=== PATIENT | male | born 1975 | race Caucasian/White ===

== ENCOUNTER → 2020-01-03 14:59 | Outpatient (CLI) | payer OTHER, SELFPAY ==
--- NOTE | ~2020-01-03 | MR_ITS ---
EXAMINATION: MR elbow LT wo con DATE: 01/03/2020 15:53 INDICATION: Left elbow biceps tear. TECHNIQUE: Magnetic resonance imaging (MRI) of the left elbow was performed without intravenous contr ast. Sequences included coronal, axial, and sagittal PD-weighted FS FSE and coronal, axial, and sagit itzel PD-weighted FSE. COMPARISON: None FINDINGS: Osseous/other: Normal alignment. Normal marrow signal with no marrow edema, fracture, osteochondral lesion or abnor mal marrow replacing process. Nonuniform joint space narrowing with partial thickness cartilage loss consistent with mild osteoarthritis at the left elbow. Tendons: Full-thickness avulsion of the biceps brachii tendon from its radial tuberosity insertion. The tendon is retracted 9 cm from the radial tuberosity footplate with undulating lax configuration with surrou nding edema in the anterior aspect of the distal upper arm. Triceps and brachialis tendons are normal . Common flexor tendon wad is normal. The common extensor tendon wad is normal. Ligaments: The medial and lateral collateral ligament complexes are normal. Cubital tunnel: Cubital tunnel is unremarkable with normal signal and caliber of the ulnar nerve. Fluid: Physiologic amount of fluid the elbow joint. IMPRESSION: 1. Complete avulsion from the radial tuberosity and 9 cm proximal retraction of the biceps brachii te ndon. Reviewed, dictated and finalized at location A. IMPRESSION: 1. Complete avulsion from the radial tuberosity and 9 cm proximal retraction of the biceps brachii tendon.
== END ==
PROVIDERS: PCP Family Medicine; Visit Provider Specialist
DX: M25.522 Pain in left elbow (principal)
CPT/HCPCS: 73221

== ENCOUNTER 2021-02-26 17:48 | Emergency (ER) | payer OTHER, SELFPAY ==
[2021-02-26 18:04] VITALS: BP 159/117; PULSE 109; RESP 14; TEMP 36.4; O2SAT 100
[2021-02-26] MEDS: TETANUS,DIPHTHERIA,AC PERTUSSIS ADULT (0.5 ML) BOOSTRIX IM (19:15)
--- NOTE | 2021-02-26 20:22 | ED.GENADULT ---
HPI - General Adult General Chief complaint: Wound/Laceration Stated complaint: cut hand with saw Time Seen by Provider: 02/26/21 18:15 Source: patient Mode of arrival: ambulatory Limitations: no limitations History of Present Illness HPI narrative: Patient presents with chief complaint of disc it would put her injury to the left hand. Patient reports bleeding to the injury. Patient reports a chunk of the skin is missing. Patient denies crush injury or other areas of injury .patient states that he is not up-to-date on his tetanus. Related Data Allergies Allergy/AdvReac Type Severity Reaction Status Date / Time No Known Allergies Allergy Verified 02/26/21 18:18 Review of Systems Review of Systems: CONSTITUTIONAL: Denies fever, chills, or sweats. EYES: Denies visual changes, redness, or discharge. ENT: Denies rhinorrhea, congestion, sore throat, or otalgia. CARDIOVASCULAR: Denies chest pain, palpitations, or edema. RESPIRATORY: Denies cough or dyspnea. GASTROINTESTINAL: Denies abdominal pain, nausea, vomiting, or diarrhea. GENITOURINARY: Denies dysuria or hematuria. SKIN: Reports skin avulsion and laceration denies rash or itching. MUSCULOSKELETAL: Denies back pain, joint pain, or myalgia. NEUROLOGIC: Denies headache, numbness, dizziness, or weakness. PSYCHIATRIC: Denies anxiety or depression. Exam Narrative: GENERAL: Well-appearing, well-nourished, and in no acute distress. HEAD: Normocephalic, atraumatic. EYES: PERRLA and EOMI. NECK: Supple. No adenopathy or masses. CHEST: Clear to auscultation. No respiratory distress. No wheezes rales or rhonchi HEART: Regular rate and rhythm. No murmur heard. Normal peripheral pulses. EXTREMITIES: Normal range of motion. No edema. SKIN: Reports. Like Grid like irregular laceration along the 5th finger side of the left hand. Most well approximated but the lower aspect 1x1 in area the overlying tissue is avulsed and slowly bleeding. warm, dry, no rash. NEURO: No focal deficits. Alert and oriented x3. PSYCH: Normal mood and affect. Course Vital Signs Vital signs: Vital Signs Temperature 97.5 F L 02/26/21 18:04 Pulse Rate 109 H 02/26/21 18:04 Respiratory Rate 14 02/26/21 18:04 Blood Pressure 159/117 H 02/26/21 18:04 Pulse Oximetry 100 02/26/21 18:04 Temperature 97.5 F L 02/26/21 18:04 Pulse Rate 109 H 02/26/21 18:04 Respiratory Rate 14 02/26/21 18:04 Blood Pressure 159/117 H 02/26/21 18:04 Pulse Oximetry 100 02/26/21 18:04 Medical Decision Making MDM Narrative Medical decision making narrative: surgicel applied over area of skin avulsion 1x1 after thoroughly cleaned with wound heavy cleaner and flushed with saline. other areas are not suturable but approximated well. Keflex prescribed as well as follow up and signs of infections discussed. Vital Signs Vital Signs: Vital Signs Temperature 97.5 F L 02/26/21 18:04 Pulse Rate 109 H 02/26/21 18:04 Respiratory Rate 14 02/26/21 18:04 Blood Pressure 159/117 H 02/26/21 18:04 Pulse Oximetry 100 02/26/21 18:04 Temperature 97.5 F L 02/26/21 18:04 Pulse Rate 109 H 02/26/21 18:04 Respiratory Rate 14 02/26/21 18:04 Blood Pressure 159/117 H 02/26/21 18:04 Pulse Oximetry 100 02/26/21 18:04 Discharge Plan Discharge Clinical Impression: Avulsion of skin Injury of hand, left Qualifiers: Encounter type: initial encounter Qualified Code(s): S69.92XA - Unspecified injury of left wrist, hand and finger(s), initial encounter Patient Disposition: Home, Self-Care Condition: Improved Instructions: Antibiotic Form, Skin Avulsion (ED), Skin Adhesive Care (ED) Additional Instructions: Wash hands with antibacterial soap and apply antibacterial ointment. Take Keflex as instructed. Take naproxen as instructed for pain. Allow adhesive to naturally disintegrate. Follow-up with primary care next week for reevaluation of wound, sooner if there are any questions or concerns Return t
[2021-02-26 20:47] VITALS: BP 138/93; PULSE 93; RESP 18; O2SAT 98
== END 2021-02-26 20:49 | disposition home or self-care (01) ==
PROVIDERS: Emergency Provider Emergency Medicine; PCP Family Medicine
DX: S61.412A Laceration without foreign body of left hand, initial encounter (principal); Z23 Encounter for immunization; W27.0XXA Contact with workbench tool, initial encounter
CPT/HCPCS: 90471; 90715; 99283

== ENCOUNTER 2024-02-01 12:03 | Outpatient (CLI) | payer BC, SELFPAY ==
--- NOTE | ~2024-02-01 | XR_ITS ---
EXAMINATION: XR lumbar spine 6V w bending DATE: 02/01/2024 12:42 INDICATION: Low back pain. TECHNIQUE: 7 views of lumbar spine including flexion and extension views were obtained. COMPARISON: None. FINDINGS: There is 8 degrees levocurvature of lumbar spine. There is mild chronic anterior wedging of T11-L2 vertebral bodies. There is mildly decreased disc height at L2-L3, L4-L5, and L5-S1. There is no abnormal motion on flexion or extension. There is multilevel facet joint osteoarthritis, severe bi laterally at L4-L5 and L5-S1. IMPRESSION: 1. Mild lumbar spondylosis. Reviewed, dictated and finalized at location A. IMPRESSION: 1. Mild lumbar spondylosis.
--- NOTE | ~2024-02-01 | XR_ITS ---
AP and lateral views of the pelvis Clinical history: Pain Findings: No acute fracture or dislocation is seen. Osseous alignment is anatomic. Bilateral hip and SI joint spaces are preserved. Soft tissues are unremarkable. Impression: No significant abnormality is seen. Reviewed, dictated and finalized at location . Impression: No significant abnormality is seen.
== END 2024-02-01 12:04 | disposition home or self-care (01) ==
PROVIDERS: PCP Student in an Organized Health Care Education/Training Program; Visit Provider Chiropractor
DX: M43.02 Spondylolysis, cervical region (principal)
CPT/HCPCS: 72114; 72170

== ENCOUNTER 2024-03-30 10:00 | Outpatient (CLI) | payer BC, SELFPAY ==
--- NOTE | ~2024-03-30 | MR_ITS ---
EXAMINATION: MR hip LT wo con DATE: 03/30/2024 11:00 INDICATION: Left hip pain. Labral tear. TECHNIQUE: Magnetic resonance imaging (MRI) of the left hip was performed without intravenous contras t. COMPARISON: Pelvis radiograph 02/01/2024 FINDINGS: Bones/cartilage: Alignment is normal. No fracture. The femoral head/neck morphologies are normal. The hip joints demon strate tiny osteophytes. Small [id number] images of left hip demonstrate shallow partial-thickness cartilage loss. Labrum: The left acetabular labrum is normal. Fluid: There is no hip joint effusion. There is bilateral iliopsoas bursitis, right worse than left. There i s mild bilateral trochanter bursitis. Soft tissues: There is mild right hamstring origin tendinopathy. There is a partial tear of left hamstring origin. The iliopsoas tendons are normal. The gluteus minimus and gluteus medius tendons are normal. IMPRESSION: 1. Mild osteoarthritis of the hips. 2. Bilateral iliopsoas bursitis, right worse than left. 3. Partial tear of left hamstring origin. Reviewed, dictated and finalized at location A. 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
== END 2024-03-30 10:01 | disposition home or self-care (01) ==
LOC: GOSHIMG 10:01
PROVIDERS: PCP Chiropractor; Visit Provider Chiropractor
DX: S73.192A Other sprain of left hip, initial encounter (principal); X58.XXXA Exposure to other specified factors, initial encounter; M16.12 Unilateral primary osteoarthritis, left hip
CPT/HCPCS: 73721

== ENCOUNTER 2025-03-12 13:47 | Outpatient (CLI) | payer BC, SELFPAY ==
--- NOTE | 2025-03-12 | ECG_ITS ---
Test Date: 2025-03-12 14:06:26 Measurements Intervals [place] Rate: 62 P: 22 PA: 180 QRS: -13 QRSD: 101 T: 7 QT: 396 QTc: 404 Interpretive Statements SINUS RHYTHM INCOMPLETE RIGHT BUNDLE BRANCH BLOCK [90+ ms QRS DURATION, TERMINAL R IN V1/V2, 40+ ms S IN I/aVL/V4/V5/V6] NONSPECIFIC T-WAVE ABNORMALITY ABNORMAL ECG No previous ECG available for comparison Electronically Signed On 03-12-2025 16:00:28 BLACK OFF WORKER by Jasiel Lambert M.D.
--- OUTSIDE RECORDS SUMMARY | 2025-03-13 00:17 | XMS_ITS | Clinical Summary ---
Author Organization [facility] Address [address] [place] [address] Phone Care Team Providers Care Inspector Finishing Name Role Phone Provider, None Primary Care Provider Unavailabl e Social History Tobacco Use Types Packs/Day Years Used Date Smoking Tobacco: Never Assessed Sex and Gender Information Value Date Recorded Sex Assigned at Not on file Legal Sex Male 9:24 AM CDT Gender Identity Not on file Sexual Orientation Not on file Plan of Treatment Health Maintenance Due Date Last Done Comments Hepatitis C Virus (HCV) Screening 1974 Hepatitis B Immunization (1 of 3 - 19+ 3-dose series) 1993 Cologuard 2019 Colonoscopy 2019 Colorectal Cancer Screening 2019 Immunochemical Fecal Occult Blood 2019 Pneumococcal Immunization (5 0+ years) (1 of 1 - PCV) 2024 Zoster Immunization (1 of 2) 2024 Influenza Immunization (#1) 2024 SARS-COV-2 Immunization ( season) 2024 05/09/2021, 10/02/2020, 09/11/2020 Respiratory Syncytial Virus (RSV) Immunization (Adult) (1 - 1-dose 75+ series) 2049 TdaP Immunization Completed 02/26/2021 Human Papillomavirus (HPV) Immunization Aged Out No longer eligible b ased on patient's age to complete this topic Meningococcal Immunization (ACWY) Aged Out No longer eligible b ased on patient's age to complete this topic Rotavirus Immunization Aged Out No lo nger eligible based on patient's age to complete this topic Care Teams Inspector Finishing Relationship Specialty Start Date End Date Provider, None [place] PCP - General 10/19/23
--- OUTSIDE RECORDS SUMMARY | 2025-03-13 00:17 | XMS_ITS | Encounter Summary ---
Author Organization [facility] Address [address] [place] [id number] Care Team Providers Care Aerospace Physiological Technician Name Role Phone Soco Beltre MD Primary Care Provider + Encounter Details Date Type Department Care Team (Late st Contact Info) Description 07/09/2024 [employer] Message Enc [facility] Family Medicine - [place] [address] [place] [address] [phone] Soco Beltre MD [address] [place] [address] [phone] BP follow up Social History Tobacco Use Types Packs/Day Years Used Date Smoking Tobacco: Never Passive Smoke Exposure: Past Smokeless Tobacco: Never Alcohol Use Standard Drinks/Week Comments Yes 6.7 (1 standard drink = 0.6 oz p ure alcohol) socially PHQ-2 Answer Date Recorded Patient Health Questionnaire-2 Score 0 06/06/2024 Sex and Gender Information Value Date Recorded Sex Assigned at Male 06/15/2024 11:44 AM BUNDLE CLERK Legal Sex Male 1:06 PM CDT Gender Identity Not on file Sexual Orientation Not on file 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 file Not on file Not on file documented as of this encounter Last Filed Vital Signs Vital Sign Reading Time Taken Comments Blood Pressure 117/84 07/09/2024 1:56 PM CDT jeff e reading Pulse - - Temperature - - Respiratory Rate - - Oxygen Saturation - - Inhaled Oxygen Concentration - - Weight - - Height - - Body Mass Index - - documented in this encounter Plan of Treatment Upcoming Encounters Date Type Department Care Team (Late st Contact Info) Description 12/09/2025 8:10 AM CDT Office Visit [facility] Family Medicine - [place] [address] [place] [address] Soco Beltre MD [address] [place] [address] documented as of this encounter Visit Diagnoses Not on filedocumented in this encounter Care Teams Aerospace Physiological Technician Relationship Specialty Start Date End Date Soco Beltre MD [address] [place] [address] PCP - General FAMILY PRACTICE 11/07/23 documented as of this encounter
--- OUTSIDE RECORDS SUMMARY | 2025-03-13 00:18 | XMS_ITS | Encounter Summary ---
Author Organization [facility] Address [address] [place] [address] Care Team Providers Care An/Syq 13 Nav/C2 Operator Name Role Phone Soco Beltre MD Primary Care Provider + Encounter Details Date Type Department Care Team (Late st Contact Info) Description 06/04/2024 [employer] Message Enc [facility] Family Medicine - [place] [address] [facility] [address] [place] [address] [phone] Soco Beltre MD [address] [place] [address] [phone] Referrals request Social History Tobacco Use Types Packs/Day Years Used Date Smoking Tobacco: Never Smokeless Tobacco: Never Alcohol Use Standard Drinks/Week Comments Yes 6.7 (1 standard drink = 0.6 oz p ure alcohol) socially PHQ-2 Answer Date Recorded Patient Health Questionnaire-2 Score 0 06/06/2024 Sex and Gender Information Value Date Recorded Sex Assigned at Male 06/15/2024 11:44 AM STAGE ELECTRICIAN HELPER Legal Sex Male 1:06 PM CDT Gender Identity Not on file Sexual Orientation Not on file 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 Question Answer Date of Assessment Author Status Little interest or pleasure in doing things Not at all 06/06/2024 8:51 AM STAGE ELECTRICIAN HELPER Margarita Da Silva, KRIS Active Feeling down, depressed, or hopeless Not at all 06/06/2024 8:51 AM STAGE ELECTRICIAN HELPER Margarita Da Silva MA Activ e Patient Health Questionnaire-2 Score 0 06/06/2024 8:51 AM STAGE ELECTRICIAN HELPER Margarita Da Silva MA Active * If you checked off any problems on this questionnaire so far, Question Answer Date of Assessment Author Status How difficult have these problems made it for you to do your work, take care of things at home, or get along with other people? Not difficult at all 06/06/2024 8:51 AM STAGE ELECTRICIAN HELPER Margarita Da Silva MA Active documented as of this encounter Progress Notes * Su Gallegos MA - 06/04/2024 3:54 PM CST Patient scheduled 06/06/24 E ELECTRICIAN HELPER * Soco Beltre MD - 06/04/2024 2:29 PM CST Please schedule patient to discuss in office and determine appropriate orders. E ELECTRICIAN HELPER documented in this encounter Plan of Treatment Upcoming Encounters Date Type Department Care Team (Late st Contact Info) Description 12/09/2025 8:10 AM CDT Office Visit [facility] Family Medicine - [place] [address] [place] [address] [phone] Soco Beltre MD [address] [place], [place] [phone] documented as of this encounter Visit Diagnoses Not on filedocumented in this encounter Care Teams An/Syq 13 Nav/C2 Operator Relationship Specialty Start Date End Date Soco Beltre MD [address] [place], [place] [phone] PCP - General FAMILY PRACTICE 11/07/23 documented as of this encounter
--- OUTSIDE RECORDS SUMMARY | 2025-03-13 00:18 | XMS_ITS | Clinical Summary ---
Author Organization [facility] [address] [facility] Address [address] [place] [address] Care Team Providers Care Classified Advertising Manager Name Role Phone Soco Beltre MD Primary Care Provider Allergies No known active allergies Medications No known medications Active Problems Problem Noted Date Diagnosed Date Strain of lumbar region 08/16/2024 Social History Tobacco Use Types Packs/Day Years Used Date Smoking Tobacco: Former Cigarettes Tobacco Cessation:Counseling Given: Not Answered Sex and Gender Information Value Date Recorded Sex Assigned at Not on file Legal Sex Male 3:45 PM CDT Gender Identity Not on file Sexual Orientation Not on file Last Filed Vital Signs Vital Sign Reading Time Taken Comments Blood Pressure - - Pulse - - Temperature - - Respiratory Rate - - Oxygen Saturation - - Inhaled Oxygen Concentration - - Weight 113.4 kg (250 lb) 08/16/2024 8:19 AM CDT Height 185.4 cm (6' 1) 08/16/2024 8:19 AM CDT Body Mass Index 32.98 08/16/2024 8:19 AM CDT Plan of Treatment Health Maintenance Due Date Last Done Comments Colon Cancer Screening-Colonoscopy 1974 Depression Screening 1974 Hepatitis C Screening 1974 Prostate Cancer Screening-PSA 1974 Hepatitis B Screening 1992 Regular Well Visit/Exam 18-64 1992 Zoster Vaccine (1 of 2) 2024 Covid-19 Vaccine ( - 2024-2 6 season) 2024 05/09/2021, 10/02/2020, 09/11/2020 Influenza Vaccine (#1) 2024 DTaP/Tdap/Td Vaccine (2 - Td or Tdap) 02/26/2031 02/26/2021 Pneumococcal vaccine <65 Aged Out No longer eligible based on patient's age to complete this topic Insurance [employer] OOS Care Teams Classified Advertising Manager Relationship Specialty Start Date End Date Soco Beltre MD [address] [facility] [address] [place] [id number] PCP - General Family Medicine 08/14/24
--- OUTSIDE RECORDS SUMMARY | 2025-03-13 00:18 | XMS_ITS | Encounter Summary ---
Author Organization [facility] Address [address] [place] [address] Care Team Providers Care Customer Success Director Name Role Phone Soco Beltre MD Primary Care Provider + Encounter Details Date Type Department Care Team (Late st Contact Info) Description 06/06/2024 [employer] Message Enc [facility] Family Medicine - [place] [address] [place] [address] [phone] Soco Beltre MD [address] [place] [phone] Blood pressure Social History Tobacco Use Types Packs/Day Years Used Date Smoking Tobacco: Never Passive Smoke Exposure: Past Smokeless Tobacco: Never Alcohol Use Standard Drinks/Week Comments Yes 6.7 (1 standard drink = 0.6 oz p ure alcohol) socially PHQ-2 Answer Date Recorded Patient Health Questionnaire-2 Score 0 06/06/2024 Sex and Gender Information Value Date Recorded Sex Assigned at Male 06/15/2024 11:44 AM PLAYERS ASSISTANT Legal Sex Male 1:06 PM CDT Gender Identity Not on file Sexual Orientation Not on file 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 Question Answer Date of Assessment Author Status Little interest or pleasure in doing things Not at all 06/06/2024 8:51 AM PLAYERS ASSISTANT Margarita Da Silva MA Active Feeling down, depressed, or hopeless Not at all 06/06/2024 8:51 AM Margarita Hernandez MA Activ e Patient Health Questionnaire-2 Score 0 06/06/2024 8:51 AM Margarita Hernandez MA Active * If you checked off any problems on this questionnaire so far, Question Answer Date of Assessment Author Status How difficult have these problems made it for you to do your work, take care of things at home, or get along with other people? Not difficult at all 06/06/2024 8:51 AM Margarita Hernandez MA Active documented as of this encounter Plan of Treatment Upcoming Encounters Date Type Department Care Team (Late st Contact Info) Description 12/09/2025 8:10 AM CDT Office Visit [facility] Family Medicine - [place] [address] [place] [address] [phone] Soco Beltre MD [address] [place] [address] [phone] documented as of this encounter Visit Diagnoses Not on filedocumented in this encounter Care Teams Customer Success Director Relationship Specialty Start Date End Date Soco Beltre MD [address] [place] [address] [phone] PCP - General FAMILY PRACTICE 11/07/23 documented as of this encounter
== END 2025-03-12 13:48 | disposition home or self-care (01) ==
LOC: ANHCARD 13:53
PROVIDERS: PCP Chiropractor; Visit Provider Podiatrist Foot & Ankle Surgery
DX: Z01.818 Encounter for other preprocedural examination (principal); I45.10 Unspecified right bundle-branch block
CPT/HCPCS: 93005